=== PATIENT | male | born 1950 | race African-American/Black ===

== ENCOUNTER 2017-12-01 12:37 | Outpatient (CLI) | payer MEDICARE ==
--- NOTE | 2017-12-01 13:31 | CT ---
NONCONTRAST CT BRAIN: Date: 12-01-17 History: Stroke in 2018 Comparison: 09-05-13. Unfortunately, more recent CT images not available for comparison. FINDINGS: There is a 2.2 x 2.9 cm area of hypodensity involving nearly the entire right thalamus. This is janna tible with an area of stroke. Some central areas of slight hyperintensity seen concerning for a possi ble hemorrhage internally. This, however, appear to be likely resolving. Old area of stroke also seen in the posterior aspect of the right temporal lobe. Some areas of hypodensity also seen in the odin compatible with areas of stroke. These appear to be o lder in age. IMPRESSION: Right large thalamic area of mixed density compatible with likely area of resolving hemorrhagic strok e. Correlation with MRI and comparison with more recent CT images are recommended. POS: DIGNA
== END 2017-12-01 12:38 | disposition home or self-care (01) ==
LOC: TBSIIMAG 12:37
PROVIDERS: ATTEND Surgery
DX: I61.0 Nontraumatic intracerebral hemorrhage in hemisphere, subcortical (principal)
CPT/HCPCS: 70450

== ENCOUNTER 2018-01-11 10:45 | Outpatient (CLI) | payer MEDICARE ==
--- NOTE | 2018-01-18 18:26 | RAD ---
MODIFIED BARIUM SWALLOW: Clinical history: Dysphasia, unspecified. Feeding difficulties. Examination is interpreted without the benefit of real-time assessment. Provided fluoroscopic imaging of the patient ingesting varying consistencies of radiopaque contrast laced material are submitted. FINDINGS: There is evidence of laryngeal penetration and tracheal aspiration. IMPRESSION: Laryngeal penetration and tracheal aspiration. Reference speech pathology report for further details. POS: MARIYA
== END 2018-01-11 10:46 | disposition home or self-care (01) ==
PROVIDERS: ATTEND Internal Medicine
DX: R13.10 Dysphagia, unspecified (principal); R63.3 Feeding difficulties
CPT/HCPCS: 74230; G8996-GN-CL; G8997-GN-CL